=== PATIENT | female | born 1995 | race Caucasian/White ===

== ENCOUNTER 2023-04-04 07:35 | Inpatient (IN) ==
--- NOTE | 2023-04-04 08:55 | History & Physical Report ---
Date of Service April 04, 2023 Assessment & Plan (1) Previous delivery affecting , antepartum: Plan: 27-year-old -0-0-1 at 40.1 weeks of gestation presenting today for TOLAC/ versus repeat , Vital signs stable afebrile, She is anxious and has multiple questions about each route of delivery I answered them all in details, We discussed the risks of [place]/ as uterine rupture, intra-abdominal bleeding, distress, hypoxia, even , maternal risk of blood transfusion, need for hysterectomy. Patient understands C section is a major surgery, with risks including but not limited to bleeding , infection, injury to surrounding organs like bowels, bladder, ureters, adhesions, scarring, wound infection, blood cloths in legs/ lungs, longer recovery. The read the form from [employer] with details of risks and benefits of vs Re epat Csection All questions were answered. She signed an informed consent for TOLAC/ . Plan to admit, mitor, labs, Vargas baloon for mechanical dilatation and low dose pitocin per protocol. (2) Post-term , 40-42 weeks of gestation: Admission and Anticipated Discharge Date Admission Date: April 04, 2023 History of Present Illness Primary Care Provider: NO PCP Patient is a 27-year-old -0-0-1 at 40 weeks and 1 day gestation who was scheduled for induction of labor for TOLAC/ versus repeat depending of her cervix. We discussed the risks and benefits of versus Repeat in details. She has no complaints other than being nervous. She denies contractions, leakage of fluid, vaginal bleeding. She reports good movements. Her has been uncomplicated except history of prior on August 2016. She denies any medical problems. GBS is negative. Allergies Allergy/AdvReac Type Severity Reaction Status Date / Time No Known Allergies Allergy Verified 08/25/22 09:57 Home Medications Medication Instructions Recorded Confirmed Type vits 75-iron 28 mg-folic pkg PO 08/16/22 08/25/22 History acid 800 mcg-omega3 440 mg oral pack (One Daily ) Patient History Medical History Varicella vaccination Stomach ulcer Surgical History S/P cholecystectomy S/P breast augmentation S/P section Family History Father Diabetes Hypertension Kidney disease kidney transplant Denies family history of Ovarian cancer Breast cancer Colorectal cancer Social History (Updated 08/16/22 @ 13:18 by Dali Caceres) Smoking Status: Former smoker Do You Dip or Chew Tobacco: No; marital status: marital status details: Irma (31) [phone] Current Living Situation: Spouse and Family Current Living Situation Comment: lives with spouse, daughter, no pets current occupational status: employed current occupation: [employer] OB History Primary elective at 41 weeks, viable female infant, 3580 g [employer] History No history of STDs, no history of chlamydia, gonorrhea, herpes. Review of Systems as per Subjective / HPI Physical Exam Constitutional: WD/WN, vitals as above well developed and well nourished Psychiatric: Affect: + anxious affect Genitourinary: normal external appearance OB Exam Abdomen: + vertex Manual OB Exam: + cervical dilation 1 cm, + cervical effacement 30% and + station high (Posterior) OB Exam Monitor Tracing: + external uterine monitor used and + category I Bedside ultrasound, single IUP, vertex presentation, EFW 3500+ gr Results & Data Vital Signs (Past 12 Hours) Vital Signs Pulse BP 04/04/23 08:43 95 H 134/80
[2023-04-04] MEDS ORDERED: LIDOCAINE 1% LOCAL 20 ML VIAL INFIL PRN (09:09)
[2023-04-04 09:49] LABS: Basophils # (auto) 0.02 K/uL (0.00-0.20); Basophils % (auto) 0.2 %; Eosinophils # (auto) 0.19 K/uL (0.00-0.50); Eosinophils % (auto) 1.7 %; Hematocrit (blood only) 36.8 % (37.0-47.0); Hemoglobin 12.4 g/dl (12.0-16.0); Immature Granulocytes # (auto) 0.09 K/uL (0.01-0.20); Immature Granulocytes % (auto) 0.8 %; Lymphocytes # (auto) 2.01 K/uL (1.20-3.40); Lymphocytes % (auto) 18.3 %; Mean Corpuscular Hemoglobin 28.6 pg (25.0-34.0); Mean Corpuscular Hgb Conc 33.7 g/dL (32.0-36.0); Mean Platelet Volume 10.2 fL (9.4-12.4); Monocytes # (auto) 0.58 K/uL (0.11-0.59); Monocytes % (auto) 5.3 %; Neutrophils # (auto) 8.11 K/uL (1.40-6.50); Neutrophils % (auto) 73.7 %; Platelet Count 272 K/uL (130-400); RDW Coefficient of Variation 17.5 % (11.5-14.5); RDW Standard Deviation 54.1 fL (36.4-46.3); Red Blood Count 4.33 M/uL (4.20-5.40)
[2023-04-04 10:05] LABS: Alanine Aminotransferase 12 U/L (7-52); Albumin Globulin Ratio 1.1 (0.9-2); Albumin Level 3.7 gm/dl (3.4-5.0); Alkaline Phosphatase 198 U/L (34-104); Anion Gap 9 (3-11); Aspartate Aminotransferase 17 U/L (13-39); Bilirubin,Total 0.3 mg/dl (0.2-1.0); Blood Urea Nitrogen 8 mg/dl (6-23); Calcium 9.3 mg/dl (8.6-10.3); Carbon Dioxide 22 mmol/L (21-32); Chloride 104 mmol/L (98-107); Est GFR (African American) > 150.0 ml/min; Est GFR (Non-African American) 134.4 ml/min; Globulin 3.4 gm/dl (2.5-4.0); Glucose 82 mg/dl (70-99(Fasting)); Potassium 3.9 mmol/L (3.5-5.1); Sodium 135 mmol/L (136-145); Total Protein 7.1 gm/dl (6.0-8.3)
[2023-04-04] MEDS: LACTATED RINGER'S 1,000 ML IV PRN (10:25)
--- NOTE | 2023-04-04 10:25 | Procedure Note ---
Procedure Note Date of Service April 04, 2023 Note Patient is placed in dorsolithotomy position, lighted speculum was introduced into the vagina. The cervix was visualized and cleaned with Betadine. The catheter was introduced through the cervix and inflated with [address] without difficulty. The tip of the catheter was attached to inner time with gentle tension. The patient tolerated procedure well. Continue to monitor closely. Coding
[2023-04-04] MEDS: OXYTOCIN 30 UNITS/NSS 30 UNITS/500 ML BAG IV PRN (10:28)
[2023-04-04] MEDS: BUTORPHANOL TARTRATE 2 MG/ML VIAL IV PRN (11:23)
--- NOTE | 2023-04-04 15:21 | Obstetrical Progress Note ---
Date of Service April 04, 2023 Assessment & Plan Admission and Anticipated Discharge Date Admission Date: April 04, 2023 Subjective Patient is reevaluated. She received 1 mg of Stadol at 11 am and pain has been under control. 05/24 VSS Afebrile FHR categ i [place] mild ctxd q 2-4 min VE: Bulb was in vagina, removed, cervix is 3-4 cm/ 30%/ -4, posterior, patient does not tolerate exams well. Continue to monitor AROM after epidural Results & Data Vital Signs (Past 12 Hours) Vital Signs Pulse Resp BP 04/04/23 14:38 84 133/83 04/04/23 13:48 89 117/73 04/04/23 12:38 78 127/70 04/04/23 11:39 76 118/72 04/04/23 10:30 90 18 124/69 04/04/23 09:57 108 H 136/87 04/04/23 09:49 96 H 140/81 04/04/23 09:37 103 H 144/72 H 04/04/23 09:27 106 H 141/73 H 04/04/23 09:18 92 H 147/76 H 04/04/23 09:09 98 H 122/82 04/04/23 08:43 95 H 134/80 04/04/23 07:59 18 04/04/23 07:59 18
[2023-04-04] MEDS ORDERED: BUPIVACAINE 0.25% PF 30 ML VIAL EPI PRN (16:27)
[2023-04-04] MEDS ORDERED: LIDOCAINE 2% MPF LOCAL 5 ML VIAL EPI PRN (16:27)
[2023-04-04] MEDS ORDERED: fentaNYL citrate PF 100 MCG/2 ML VIAL EPI PRN (16:27)
[2023-04-04] MEDS ORDERED: PROMETHAZINE HCL 6.25 MG in SODIUM CHLORIDE 0.9% 50 ML IV PRN (16:27)
[2023-04-04] MEDS ORDERED: METOCLOPRAMIDE HCL 20 MG in SODIUM CHLORIDE 0.9% 50 ML IV PRN (16:27)
[2023-04-04] MEDS ORDERED: NALOXONE HCL 0.4 MG/1 ML VIAL/CARP IV PRN (16:27)
[2023-04-04] MEDS ORDERED: ROPIVACAINE 0.5% PF 5 MG/ML 20 ML VIAL EPI PRN (16:27)
[2023-04-04] MEDS ORDERED: SODIUM CHLORIDE 0.9% PF INJ 10 ML VIAL EPI PRN (16:27)
[2023-04-04] MEDS ORDERED: ePHEDrine sulfate 50 MG/ML AMP IV PRN (16:27)
[2023-04-04] MEDS ORDERED: NALBUPHINE HCL 5 MG in SYRINGE 0 ML IV PRN (16:27)
[2023-04-04] MEDS ORDERED: ONDANSETRON INJ 2 MG/ML 2 ML VIAL IV PRN (16:27)
[2023-04-04] MEDS ORDERED: diphenhydrAMINE 50 MG/ML VIAL IV PRN (16:27)
[2023-04-04] MEDS ORDERED: NALOXONE HCL 1 MG in SODIUM CHLORIDE 0.9% 1,000 ML IV PRN (16:27)
--- NOTE | 2023-04-04 16:31 | Anesthesiology Consultation ---
Date of Service April 04, 2023 Assessment & Plan Chart Review Chart Review: Acceptable Risk for Labor Epidural Consults Requested none ASA ASA2 Proposed Anesthesia Anesthesia Type: Labor Epidural Risk / Benefits Reviewed With: PT / POA / Parent / Guardian, Accepts Plan and Informed Consent Obtained History Height/Weight Height: 5 ft 5 in Weight: 81.193 kg Allergies Allergy/AdvReac Type Severity Reaction Status Date / Time No Known Allergies Allergy Verified 04/04/23 11:16 Medications Home Medications Medication Instructions Recorded Confirmed Last Taken vits 75-iron 28 mg-folic 1 pkg PO DAILY 08/16/22 04/04/23 04/03/23 acid 800 mcg-omega3 440 mg oral pack (One Daily ) Active Medications Generic Name Dose Route Start Last Admin Trade Name Freq PRN Reason Stop Dose Admin Butorphanol Tartrate 1 mg 04/04/23 09:11 04/04/23 11:23 Butorphanol Tartrate 2 Mg/Ml Vial IV 05/04/23 09:10 1 mg Q3HWA PRN Administration Pain Lactated Ringer's 1,000 mls @ 150 mls/hr 04/04/23 09:09 04/04/23 16:40 Lr IV 04/06/23 09:08 Infused .Q6H40M PRN Infusion L&D Protocol Protocol Oxytocin 30 units in 500 mls @ 6 mls/hr 04/04/23 09:44 04/04/23 16:11 Pitocin 30 Units/Nss IV 04/06/23 09:43 0.36 units/hr .Q24H PRN 6 mls/hr Labor Induction/Augmentation Titration Protocol 0.36 UNITS/HR NPO Date Last Intake of Fluids: 04/04/23 Time Last Intake of Fluids: 15:00 Date Last Intake of Solids: 04/04/23 Past Medical History Medical History Varicella vaccination Stomach ulcer Exercise / Class Metabolic Activity II 4-5 Yardwork/Stairs/Walk up hill Past Family History Family History Father Diabetes Hypertension Kidney disease kidney transplant Denies family history of Ovarian cancer Breast cancer Colorectal cancer Past Surgical History Surgical History S/P cholecystectomy S/P breast augmentation S/P section Past Anesthesia History No Hx of Anesthesia Complications and No Family Hx of Anesthesia Complications History of PONV No Hx of PONV and No Hx of Motion Sickness Social History Smoking Status: Former smoker Do You Dip or Chew Tobacco: No Hx Alcohol Use: No Hx Substance Use: No substance use type: does not use Physical Exam Vital Signs Last Vital Signs Temp 36.6 C 04/04/23 16:11 Pulse 107 H 04/04/23 17:08 Resp 18 04/04/23 12:00 BP 132/70 04/04/23 17:08 Pulse Ox 98 04/04/23 17:08 ENMT Mouth: no TMJ abnormality Thyromental Distance: > or= 3.5 Finger Breadths Mallampati Class: II Neck normal visual inspection and trachea midline; neck extension not limited Respiratory normal respiratory effort Auscultation: lungs clear to auscultation bilaterally Cardiovascular Rate/Rhythm: regular rate and regular rhythm Heart Sounds: no murmur Musculoskeletal Spine: normal cervical ROM Extremities: full ROM of extremities Neurologic moves all extremities Psychiatric Orientation: alert and oriented x 3 Testing Laboratory Results 04/04/23 09:19 04/04/23 09:19 Blood Type O Positive 04/04/23 09:19 Antibody Screen NEGATIVE 04/04/23 09:19
[2023-04-04] MEDS: LIDOCAINE 2%/EPINEPHRINE 1:200,000 20 ML PF EPI STA (17:18)
[2023-04-04] MEDS: fentaNYL citrate PF 100 MCG/2 ML VIAL EPI STA (17:18)
[2023-04-04] MEDS: BUPIVACAINE 0.25% PF 30 ML VIAL EPI STA (17:19)
[2023-04-04] MEDS: fentANYL 2 MCG/ML BUPIVacaine 0.125%-NSS 100ML BAG EPI PRN (17:25)
--- NOTE | 2023-04-04 18:27 | Obstetrical Progress Note ---
Date of Service April 04, 2023 Assessment & Plan Admission and Anticipated Discharge Date Admission Date: April 04, 2023 Subjective Patient is comfortable now Received epidural for pain VSS Afebrile FHR had been categ I [place] mild ctxs q 3-4 min ( palpate mild) VE; 4/ 40%/ -2, AROM'ed clear fluid Oxytocin is at 8 miu/min Continue to monitor closely. Results & Data Vital Signs (Past 12 Hours) Vital Signs Temp Pulse Resp BP Pulse Ox 04/04/23 18:23 79 98 04/04/23 18:18 93 H 97 04/04/23 18:14 98 H 118/81 04/04/23 18:13 98 H 99 04/04/23 18:08 88 100 04/04/23 18:03 82 95 04/04/23 17:59 74 115/66 04/04/23 17:58 79 98 04/04/23 17:54 90 93 04/04/23 17:53 80 99 04/04/23 17:48 85 98 04/04/23 17:44 114 H 119/77 04/04/23 17:43 115 H 99 04/04/23 17:38 93 H 99 04/04/23 17:33 84 99 04/04/23 17:28 97 H 99 04/04/23 17:27 90 112/67 04/04/23 17:24 93 H 112/80 04/04/23 17:23 87 98 04/04/23 17:21 88 121/79 04/04/23 17:18 99 04/04/23 17:18 93 H 04/04/23 17:18 85 123/76 04/04/23 17:15 85 130/71 04/04/23 17:13 99 H 98 04/04/23 17:12 104 H 132/68 04/04/23 17:08 98 04/04/23 17:08 107 H 04/04/23 17:08 98 H 132/70 04/04/23 17:06 108 H 141/76 H 04/04/23 17:03 105 H 98 04/04/23 17:00 111 H 94 04/04/23 16:58 118 H 95 04/04/23 16:53 124 H 99 04/04/23 16:48 106 H 100 04/04/23 16:11 36.6 C 04/04/23 15:39 93 H 133/74 04/04/23 14:38 84 133/83 04/04/23 13:48 89 117/73 04/04/23 12:38 78 127/70 04/04/23 12:00 18 04/04/23 12:00 18 04/04/23 11:39 76 118/72 04/04/23 10:30 90 18 124/69 04/04/23 09:57 108 H 136/87 04/04/23 09:49 96 H 140/81 04/04/23 09:37 103 H 144/72 H 04/04/23 09:27 106 H 141/73 H 04/04/23 09:18 92 H 147/76 H 04/04/23 09:09 98 H 122/82 04/04/23 08:43 95 H 134/80 04/04/23 07:59 18 04/04/23 07:59 18
[2023-04-04] MEDS: fentaNYL citrate PF 100 MCG/2 ML VIAL ONE (19:07)
[2023-04-04] MEDS: LIDOCAINE 2%/EPINEPHRINE 1:200,000 20 ML PF ONE (19:08)
[2023-04-04] MEDS: fentANYL 2 MCG/ML BUPIVacaine 0.125%-NSS 100ML BAG ONE (19:08)
[2023-04-04] MEDS: BUPIVACAINE 0.25% PF 30 ML VIAL ONE (19:08)
[2023-04-04] MEDS: SODIUM CHLORIDE 0.9% PF INJ 10 ML VIAL EPI STA (19:08)
[2023-04-04] MEDS: SODIUM CHLORIDE 0.9% PF INJ 10 ML VIAL ONE (19:08)
[2023-04-04] MEDS: ePHEDrine sulfate 50 MG/ML AMP ONE (19:09)
--- NOTE | 2023-04-04 20:40 | Obstetrical Progress Note ---
Date of Service April 04, 2023 Assessment & Plan Admission and Anticipated Discharge Date Admission Date: April 04, 2023 Subjective Patient is reevaluated. She has been resting, sleeping FHR Categ I [place] ctxs still irregular and mild to palpation VE; 4-5 cm/ 50%/ -2 Continue to monitor with position changes Results & Data Vital Signs (Past 12 Hours) Vital Signs Temp Pulse Resp BP Pulse Ox 04/04/23 20:33 84 98 04/04/23 20:29 88 105/63 04/04/23 20:28 82 98 04/04/23 20:23 85 98 04/04/23 20:18 89 98 04/04/23 20:14 84 105/55 L 04/04/23 20:13 92 H 99 04/04/23 20:08 107 H 99 04/04/23 20:03 96 H 99 04/04/23 19:58 95 H 107/65 97 04/04/23 19:53 80 97 04/04/23 19:48 82 97 04/04/23 19:43 85 118/66 98 04/04/23 19:38 82 97 04/04/23 19:33 87 96 04/04/23 19:29 73 118/66 04/04/23 19:28 82 97 04/04/23 19:23 78 98 04/04/23 19:18 83 100 04/04/23 19:14 83 113/62 04/04/23 19:13 86 97 04/04/23 19:08 78 99 04/04/23 19:07 37.0 C 18 04/04/23 19:03 76 98 04/04/23 18:59 75 112/56 L 04/04/23 18:58 81 98 04/04/23 18:53 77 98 04/04/23 18:48 77 100 04/04/23 18:44 98/63 L 04/04/23 18:43 83 99 04/04/23 18:38 73 99 04/04/23 18:33 75 98 04/04/23 18:29 81 101/58 L 04/04/23 18:28 82 99 04/04/23 18:23 79 98 04/04/23 18:18 93 H 97 04/04/23 18:14 98 H 118/81 04/04/23 18:13 98 H 99 04/04/23 18:11 16 04/04/23 18:11 36.9 C 16 04/04/23 18:08 88 100 04/04/23 18:03 82 95 04/04/23 17:59 74 115/66 04/04/23 17:58 79 98 04/04/23 17:54 90 93 04/04/23 17:53 80 99 04/04/23 17:48 85 98 04/04/23 17:44 114 H 119/77 04/04/23 17:43 115 H 99 04/04/23 17:38 93 H 99 04/04/23 17:33 84 99 04/04/23 17:28 97 H 99 04/04/23 17:27 90 112/67 04/04/23 17:24 93 H 112/80 04/04/23 17:23 87 98 04/04/23 17:21 88 121/79 04/04/23 17:18 99 04/04/23 17:18 93 H 04/04/23 17:18 85 123/76 04/04/23 17:15 85 130/71 04/04/23 17:13 99 H 98 04/04/23 17:12 104 H 132/68 04/04/23 17:08 98 04/04/23 17:08 107 H 04/04/23 17:08 98 H 132/70 04/04/23 17:06 108 H 141/76 H 04/04/23 17:03 105 H 98 04/04/23 17:00 111 H 94 04/04/23 16:58 118 H 95 04/04/23 16:53 124 H 99 04/04/23 16:48 106 H 100 04/04/23 16:11 36.6 C 04/04/23 15:39 93 H 133/74 04/04/23 14:38 84 133/83 04/04/23 13:48 89 117/73 04/04/23 12:38 78 127/70 04/04/23 12:00 18 04/04/23 12:00 18 04/04/23 11:39 76 118/72 04/04/23 10:30 90 18 124/69 04/04/23 09:57 108 H 136/87 04/04/23 09:49 96 H 140/81 04/04/23 09:37 103 H 144/72 H 04/04/23 09:27 106 H 141/73 H 04/04/23 09:18 92 H 147/76 H 04/04/23 09:09 98 H 122/82 04/04/23 08:43 95 H 134/80
--- NOTE | 2023-04-04 23:05 | Obstetrical Progress Note ---
Date of Service April 04, 2023 Assessment & Plan Admission and Anticipated Discharge Date Admission Date: April 04, 2023 Subjective Patient is reevaluated. Feel pressure in vagina VSS Afebrile FHR categ I VE; 5/ 70%/ -1, minimal change Oxytocin is at 12 miu/min AP: 27 yo at 40.1 wks IOL of labor for TOLAC/ , s/p rojas ballon and Oxytocin, AROM No significant change in cervix Discussed Repeat Csection vs continue with IOL Patient desires to try for longer time. Continue to monitor closely Results & Data Vital Signs (Past 12 Hours) Vital Signs Temp Pulse Resp BP Pulse Ox 04/04/23 22:58 115 H 98 04/04/23 22:53 101 H 99 04/04/23 22:48 83 97 04/04/23 22:44 81 106/57 L 04/04/23 22:43 83 97 04/04/23 22:38 93 H 98 04/04/23 22:33 89 98 04/04/23 22:30 77 109/59 L 04/04/23 22:28 75 98 04/04/23 22:23 91 H 97 04/04/23 22:18 84 98 04/04/23 22:15 90 157/63 H 04/04/23 22:13 105 H 98 04/04/23 22:08 87 97 04/04/23 22:03 97 H 97 04/04/23 21:59 82 133/79 04/04/23 21:58 99 H 99 04/04/23 21:53 98 H 98 04/04/23 21:48 85 98 04/04/23 21:44 90 119/69 04/04/23 21:43 87 97 04/04/23 21:38 78 97 04/04/23 21:33 88 97 04/04/23 21:29 96 H 114/70 04/04/23 21:28 95 H 98 04/04/23 21:23 88 98 04/04/23 21:18 92 H 98 04/04/23 21:13 101 H 103/58 L 97 04/04/23 21:08 78 98 04/04/23 21:03 81 98 04/04/23 21:00 18 04/04/23 21:00 36.9 C 18 04/04/23 20:58 78 114/62 98 04/04/23 20:53 77 98 04/04/23 20:48 86 100 04/04/23 20:43 77 110/62 99 04/04/23 20:38 79 98 04/04/23 20:33 84 98 04/04/23 20:29 88 105/63 04/04/23 20:28 82 98 04/04/23 20:23 85 98 04/04/23 20:18 89 98 04/04/23 20:14 84 105/55 L 04/04/23 20:13 92 H 99 04/04/23 20:08 107 H 99 04/04/23 20:03 96 H 99 04/04/23 19:58 95 H 107/65 97 04/04/23 19:53 80 97 04/04/23 19:48 82 97 04/04/23 19:43 85 118/66 98 04/04/23 19:38 82 97 04/04/23 19:33 87 96 04/04/23 19:29 73 118/66 04/04/23 19:28 82 97 04/04/23 19:23 78 98 04/04/23 19:18 83 100 04/04/23 19:14 83 113/62 04/04/23 19:13 86 97 04/04/23 19:08 78 99 04/04/23 19:07 37.0 C 18 04/04/23 19:03 76 98 04/04/23 18:59 75 112/56 L 04/04/23 18:58 81 98 04/04/23 18:53 77 98 04/04/23 18:48 77 100 04/04/23 18:44 98/63 L 04/04/23 18:43 83 99 04/04/23 18:38 73 99 04/04/23 18:33 75 98 04/04/23 18:29 81 101/58 L 04/04/23 18:28 82 99 04/04/23 18:23 79 98 04/04/23 18:18 93 H 97 04/04/23 18:14 98 H 118/81 04/04/23 18:13 98 H 99 04/04/23 18:11 16 04/04/23 18:11 36.9 C 16 04/04/23 18:08 88 100 04/04/23 18:03 82 95 04/04/23 17:59 74 115/66 04/04/23 17:58 79 98 04/04/23 17:54 90 93 04/04/23 17:53 80 99 04/04/23 17:48 85 98 04/04/23 17:44 114 H 119/77 04/04/23 17:43 115 H 99 04/04/23 17:38 93 H 99 04/04/23 17:33 84 99 04/04/23 17:28 97 H 99 04/04/23 17:27 90 112/67 04/04/23 17:24 93 H 112/80 04/04/23 17:23 87 98 04/04/23 17:21 88 121/79 04/04/23 17:18 99 04/04/23 17:18 93 H 04/04/23 17:18 85 123/76 04/04/23 17:15 85 130/71 04/04/23 17:13 99 H 98 04/04/23 17:12 104 H 132/68 04/04/23 17:08 98 04/04/23 17:08 107 H 04/04/23 17:08 98 H 132/70 04/04/23 17:06 108 H 141/76 H 04/04/23 17:03 105 H 98 04/04/23 17:00 111 H 94 04/04/23 16:58 118 H 95 04/04/23 16:53 124 H 99 04/04/23 16:48 106 H 100 04/04/23 16:11 36.6 C 04/04/23 15:39 93 H 133/74 04/04/23 14:38 84 133/83 04/04/23 13:48 89 117/73 04/04/23 12:38 78 127/70 04/04/23 12:00 18 04/04/23 12:00 18 04/04/23 11:39 76 118/72
--- NOTE | 2023-04-05 01:33 | Obstetrical Progress Note ---
Date of Service April 05, 2023 Assessment & Plan Admission and Anticipated Discharge Date Admission Date: April 04, 2023 Subjective Patient is reevaluated She started to feel pain and pressure in vagina She was checked her nurse, Radha at 00:13 and was 6 cm/ 80%/-1 I checked her now 10/ 100%/ +1 Epidural bag is changed now and will wait for pain control and labor down if she can FHR categ I, mild early decels with some of the contractions Continue to monitor closely Results & Data Vital Signs (Past 12 Hours) Vital Signs Temp Pulse Resp BP Pulse Ox 04/05/23 01:28 109 H 98 04/05/23 01:23 108 H 96 04/05/23 01:18 110 H 98 04/05/23 01:13 106 H 97 04/05/23 01:08 112 H 99 04/05/23 01:03 97 H 99 04/05/23 01:00 18 04/05/23 01:00 37.0 C 18 04/05/23 00:59 97 H 118/70 04/05/23 00:58 95 H 99 04/05/23 00:53 80 97 04/05/23 00:48 85 98 04/05/23 00:44 79 114/58 L 04/05/23 00:43 81 98 04/05/23 00:38 79 98 04/05/23 00:33 88 98 04/05/23 00:29 78 107/57 L 04/05/23 00:28 79 98 04/05/23 00:23 85 98 04/05/23 00:18 106 H 98 04/05/23 00:15 104 H 110/66 04/05/23 00:13 103 H 98 04/05/23 00:08 86 96 04/05/23 00:03 95 H 95 04/04/23 23:58 85 105/55 L 98 04/04/23 23:53 90 97 04/04/23 23:48 88 95 04/04/23 23:44 94 H 111/58 L 04/04/23 23:43 83 96 04/04/23 23:38 83 96 04/04/23 23:33 87 96 04/04/23 23:29 82 114/62 04/04/23 23:28 80 96 04/04/23 23:23 79 96 04/04/23 23:18 105 H 95 04/04/23 23:14 84 117/61 04/04/23 23:13 82 96 04/04/23 23:08 99 H 97 04/04/23 23:03 90 97 04/04/23 23:00 16 04/04/23 23:00 37.0 C 16 04/04/23 22:58 115 H 98 04/04/23 22:53 101 H 99 04/04/23 22:48 83 97 04/04/23 22:44 81 106/57 L 04/04/23 22:43 83 97 04/04/23 22:38 93 H 98 04/04/23 22:33 89 98 04/04/23 22:30 77 109/59 L 04/04/23 22:28 75 98 04/04/23 22:23 91 H 97 04/04/23 22:18 84 98 04/04/23 22:15 90 157/63 H 04/04/23 22:13 105 H 98 04/04/23 22:08 87 97 04/04/23 22:03 97 H 97 04/04/23 21:59 82 133/79 04/04/23 21:58 99 H 99 04/04/23 21:53 98 H 98 04/04/23 21:48 85 98 04/04/23 21:44 90 119/69 04/04/23 21:43 87 97 04/04/23 21:38 78 97 04/04/23 21:33 88 97 04/04/23 21:29 96 H 114/70 04/04/23 21:28 95 H 98 04/04/23 21:23 88 98 04/04/23 21:18 92 H 98 04/04/23 21:13 101 H 103/58 L 97 04/04/23 21:08 78 98 04/04/23 21:03 81 98 04/04/23 21:00 18 04/04/23 21:00 36.9 C 18 04/04/23 20:58 78 114/62 98 04/04/23 20:53 77 98 04/04/23 20:48 86 100 04/04/23 20:43 77 110/62 99 04/04/23 20:38 79 98 04/04/23 20:33 84 98 02/19/24 20:29 88 105/63 02/19/24 20:28 82 98 04/04/23 20:23 85 98 04/04/23 20:18 89 98 04/04/23 20:14 84 105/55 L 04/04/23 20:13 92 H 99 04/04/23 20:08 107 H 99 04/04/23 20:03 96 H 99 04/04/23 19:58 95 H 107/65 97 04/04/23 19:53 80 97 04/04/23 19:48 82 97 04/04/23 19:43 85 118/66 98 04/04/23 19:38 82 97 04/04/23 19:33 87 96 04/04/23 19:29 73 118/66 04/04/23 19:28 82 97 04/04/23 19:23 78 98 04/04/23 19:18 83 100 04/04/23 19:14 83 113/62 04/04/23 19:13 86 97 04/04/23 19:08 78 99 04/04/23 19:07 37.0 C 18 04/04/23 19:03 76 98 04/04/23 18:59 75 112/56 L 04/04/23 18:58 81 98 04/04/23 18:53 77 98 04/04/23 18:48 77 100 04/04/23 18:44 98/63 L 04/04/23 18:43 83 99 04/04/23 18:38 73 99 04/04/23 18:33 75 98 04/04/23 18:29 81 101/58 L 04/04/23 18:28 82 99 04/04/23 18:23 79 98 04/04/23 18:18 93 H 97 04/04/23 18:14 98 H 118/81 04/04/23 18:13 98 H 99 04/04/23 18:11 16 04/04/23 18:11 36.9 C 16 04/04/23 18:08 88 100 04/04/23 18:03 82 95 04/04/23 17:59 74 115/66 04/04/23 17:58 79 98 04/04/23 17:54 90 93 04/04/23 17:53 80 99 04/04/23 17:48 85 98 04/04/23 17:44 114 H 119/77 0219/24 17:43 115 H 99 04/04/23 17:38 93 H 99 04/04/23 17:33 84 99 04/04/23 17:28 97 H 99 04/04/23 17:27 90 112/67 04/04/23 17:24 93 H 112/80 04/04/23 17:23 87 98 04/04/23 17:21 88 121/79 04/04/23 17:18 99 04/04/23 17:18 93 H 04/04/23 17:18 85 123/76 04/04/23 17:15 85 130/71 04/04/23 17:13 99 H 98 04/04/23 17:12 104 H 132/68 04/04/23 17:08 98 04/04/23 17:08 107 H 04/04/23 17:08 98 H 132/70 04/04/23 17:06 108 H 141/76 H 04/04/23 17:03 105 H 98 04/04/23 17:00 111 H 94 04/04/23 16:58 118 H 95 04/04/23 16:53 124 H 99 04/04/23 16:48 106 H 100 04/04/23 16:11 36.6 C 04/04/23 15:39 93 H 133/74 04/04/23 14:38 84 133/83 04/04/23 13:48 89 117/73
[2023-04-05] MEDS ORDERED: ROPIVACAINE 0.5% 5 MG/ML 30 ML VIAL ONE (01:55)
[2023-04-05] MEDS ORDERED: LIDOCAINE 2%/EPINEPHRINE 1:200,000 20 ML PF ONE (01:55)
[2023-04-05] MEDS ORDERED: fentaNYL citrate PF 100 MCG/2 ML VIAL ONE (01:56)
--- NOTE | 2023-04-05 02:05 | Anesthesia Procedure Note ---
Date of Service April 05, 2023 Anesthesia Epidural Re-Dose Vital Signs Temp Pulse Resp BP Pulse Ox 37.0 C 97 H 18 135/83 99 04/05/23 01:00 04/05/23 02:03 04/05/23 01:00 04/05/23 02:02 04/05/23 02:03 Notes Pain Intensity: 0 Dilatation (cm): 10.0 Effacement (%): 100 Called by nursing to evaluate epidural as the patient is having increased pain. pain is on her right side. Pulled catheter back to 11.5 cm. The epidural was re-dosed with the following medications (all medications via epidural route) after negative aspiration of the epidural catheter for CSF/HEME. 2ml 2% lidocaine with epi, 3mL ropivacaine 0.5% and 100 mcg fetanyl via epidural After Epidural Re-Dose Mental Status: alert / awake / arousable Pain: improving with treatment Airway Patency, RR, SpO2: stable & adequate BP & HR: stable & adequate
[2023-04-05] MEDS: miSOPROStoL 200 MCG TAB ONE (04:21)
[2023-04-05] MEDS: OXYTOCIN 30 UNITS/NSS 30 UNITS/500 ML BAG IV PRN (04:21)
[2023-04-05] MEDS ORDERED: HYDROCORTISONE ACETATE 25 MG SUPP PR PRN (04:22)
[2023-04-05] MEDS ORDERED: oxyCODONE/ACETAMINOPHEN 5mg/325mg TAB PO PRN (04:22)
[2023-04-05] MEDS ORDERED: OXYTOCIN 30 UNITS/NSS 30 UNITS/500 ML BAG IV PRN (04:22)
[2023-04-05] MEDS ORDERED: MEASLES, MUMPS & RUBELLA VIRUS VACCINE (MMR) VIAL SQ ONE (04:22)
[2023-04-05] MEDS ORDERED: DIPHTHER/TETAN/PERTUS Vaccine (Tdap, Adol/Adult) 0.5mL IM ONE (04:22)
--- NOTE | 2023-04-05 04:25 | Delivery Summary ---
Vaginal Delivery Summary Date of Service April 05, 2023 Vaginal Delivery Summary Note: Patient was found to be fully dilated and desired to push. She pushed for about 17 min and delivered the head and then shoulders with minimal traction. The baby was handed off to the mother. The cord was clampedx2 and cut at 1 minute. The vagina and perineum were checked and found to have 2nd degree perineal laceration. Rectal exam was done and noted good sphincter tone. The gloves were changes. The perineal body muscles were reapproximated with 2/0 Vicryl to support external sphincter. The vaginal mucosa was repaired with 2/0 vicryl and skin on subcuticular fashion. The placenta was delivered spontaneously as intact and complete. The uterus was explored and found to be empty. EBL was 300 ml. The fundus was firm. The baby was a viable female , Apgars 8/9, the weight is pending The mother and the baby tolerated the procedure well. No complications happened and I was present during whole procedure.
--- NOTE | 2023-04-05 05:00 | Anesthesia Procedure Note ---
Date of Service April 05, 2023 Anesthesia Post Epidural Note Vital Signs Vital Signs: Temp Pulse Resp BP Pulse Ox 37.0 C 105 H 18 138/85 98 04/05/23 01:00 04/05/23 04:55 04/05/23 01:00 04/05/23 04:55 04/05/23 04:18 Notes Mental Status: alert / awake / arousable and participated in evaluation Nausea / Vomiting: adequately controlled Pain: adequately controlled Airway Patency, RR, SpO2: stable & adequate BP & HR: stable & adequate Hydration State: stable & adequate Neuraxial Anesthesia: was administered and sensory block resolved Anesthetic Complications: no major complications apparent and Pt Satisfied with anesthetic care Epidural: Removed without complications and With tip intact
[2023-04-05] MEDS: miSOPROStoL 200 MCG TAB PR ONE (05:22)
[2023-04-05] MEDS: METHYLERGONOVINE MALEATE 0.2 MG TAB PO SCH (05:29)
[2023-04-05] MEDS: BENZOCAINE 20% SPRY 85 APPLN/85 GM CAN EXT PRN (05:29)
[2023-04-05] MEDS: DOCUSATE SODIUM 100 MG CAP PO SCH (07:41)
[2023-04-05] MEDS: PRENATAL VITAMIN 1 TAB PO SCH (07:42)
[2023-04-05] MEDS: IBUPROFEN 600 MG TAB PO PRN (07:42)
[2023-04-05] MEDS: FERROUS SULFATE 325 MG TAB PO SCH (07:42)
[2023-04-05] MEDS: ACETAMINOPHEN 325 MG TAB PO PRN (14:35)
[2023-04-06] MEDS: bisacodyL 5 MG TABEC PO SCH (01:34)
[2023-04-06 06:42] LABS: Hematocrit (blood only) 32.2 % (37.0-47.0); Hemoglobin 10.7 g/dl (12.0-16.0); Mean Corpuscular Hgb Conc 33.2 g/dL (32.0-36.0); Mean Corpuscular Volume 87.3 fL (80.0-100.0); Mean Platelet Volume 10.5 fL (9.4-12.4); Platelet Count 204 K/uL (130-400); RDW Coefficient of Variation 17.7 % (11.5-14.5); RDW Standard Deviation 56.9 fL (36.4-46.3); Red Blood Count 3.69 M/uL (4.20-5.40); White Blood Count 12.93 K/ul (4.8-10.8)
--- NOTE | 2023-04-06 11:29 | Obstetrical Progress Note ---
Date of Service April 06, 2023 Assessment & Plan Admission and Anticipated Discharge Date Admission Date: April 04, 2023 Subjective Patient is seen and examined. She feels well, no complaints. Ambulating without dizziness Voiding without difficulty Tolerating regular diet with out N&V Bleeding is minimal No fever/ chills/ CP/ SOB/ N&V/ Leg pain Breast feeding without problems Vital Signs Temp Pulse Resp BP Pulse Ox O2 Del Method 04/06/23 07:58 Room Air 04/06/23 07:58 36.7 C 69 16 108/70 99 Room Air 04/06/23 03:15 36.5 C 79 18 111/78 04/05/23 23:40 36.5 C 81 18 108/73 Lab Results 04/04/23 04/06/23 Range/Units 09:19 06:21 WBC 11.00 H 12.93 H (4.8-10.8) K/ul RBC 4.33 3.69 L (4.20-5.40) M/uL Hgb 12.4 10.7 L (12.0-16.0) g/dl Hct 36.8 L 32.2 L (37.0-47.0) % MCV 85.0 87.3 (80.0-100.0) fL MCH 28.6 29.0 (25.0-34.0) pg MCHC 33.7 33.2 (32.0-36.0) g/dL RDW Std Deviation 54.1 H 56.9 H (36.4-46.3) fL RDW Coeff of Debra 17.5 H 17.7 H (11.5-14.5) % Plt Count 272 204 (130-400) K/uL MPV 10.2 10.5 (9.4-12.4) fL Immature Gran % (Auto) 0.8 % Neut % (Auto) 73.7 % Lymph % (Auto) 18.3 % Union % (Auto) 5.3 % Eos % (Auto) 1.7 % Baso % (Auto) 0.2 % Neut # (Auto) 8.11 H (1.40-6.50) K/uL Lymph # (Auto) 2.01 (1.20-3.40) K/uL Union # (Auto) 0.58 (0.11-0.59) K/uL Eos # (Auto) 0.19 (0.00-0.50) K/uL Baso # (Auto) 0.02 (0.00-0.20) K/uL Immature Gran # (Auto) 0.09 (0.01-0.20) K/uL Sodium 135 L (136-145) mmol/L Potassium 3.9 (3.5-5.1) mmol/L Chloride 104 (98-107) mmol/L Carbon Dioxide 22 (21-32) mmol/L Anion Gap 9 (3-11) BUN 8 (6-23) mg/dl Creatinine 0.47 L (0.6-1.2) mg/dl Est Cr Clr Drug Dosing Not Reportable Est GFR ( Amer) > 150.0 ml/min Est GFR (Non-Af Amer) 134.4 ml/min BUN/Creatinine Ratio 17.0 (10-20) Glucose 82 (70-99(Fasting)) mg/dl Calcium 9.3 (8.6-10.3) mg/dl Total Bilirubin 0.3 (0.2-1.0) mg/dl AST 17 (13-39) U/L ALT 12 (7-52) U/L Alkaline Phosphatase 198 H (34-104) U/L Total Protein 7.1 (6.0-8.3) gm/dl Albumin 3.7 (3.4-5.0) gm/dl Globulin 3.4 (2.5-4.0) gm/dl Albumin/Globulin Ratio 1.1 (0.9-2) Blood Type O Positive Antibody Screen NEGATIVE PE: General: Alert, orientedx3, NAD Abd: soft, NT, fundus firm, below Umbilicus Perineum intact, Lochia rubra minimal Ext; NT, no edema AP: 27 yo s/p , ppd# 1 VSS Afebrile doing well Continue routine care All questions were answered D/C home , f/u in office Results & Data Vital Signs (Past 12 Hours) Vital Signs Temp Pulse Resp BP Pulse Ox O2 Del Method 04/06/23 07:58 Room Air 04/06/23 07:58 36.7 C 69 16 108/70 99 Room Air 04/06/23 03:15 36.5 C 79 18 111/78 04/05/23 23:40 36.5 C 81 18 108/73
[2023-04-07] MEDS ORDERED: bisacodyL 10 MG SUPP PR PRN
== END 2023-04-06 15:00 | disposition home health service (06) | DRG 807 ==
LOC: 4S1 07:35 → 4E2 04-05 07:41